=== PATIENT | female | born 2005 | race Two or more races ===

== ENCOUNTER 2024-03-31 08:18 | Emergency (ER) | payer SELFPAY ==
[2024-03-31 09:08] LABS: Specific Gravity 1.022 (1.005-1.030)
[2024-03-31 09:24] LABS: Urine Color Dark Yellow (Yellow)
[2024-03-31 09:25] LABS: Specific Gravity 1.022 (1.005-1.030); Urine Bilirubin NEGATIVE (Negative); Urine Blood 2+ (Negative); Urine Clarity Extremely Turbid (Clear); Urine Glucose Negative (Negative); Urine Ketones NEGATIVE (Negative)
[2024-03-31 09:26] LABS: Urine Nitrite NEGATIVE (Negative); Urine Protein 2+ (Negative); Urine RBC >50 /HPF (None Seen); Urine Urobilinogen Normal mg/dL (0.2-1.0); Urine WBC >50 /HPF (<5)
[2024-03-31 09:27] LABS: Urine Bacteria 20-50 /HPF (<20); Urine Culture Reflex Order REFLEXED
[2024-03-31 09:28] LABS: Urine Yeast (Budding) Few /HPF (None Seen)
[2024-03-31 09:29] LABS: Urine WBC Clump Occasional /HPF (None Seen)
[2024-03-31 09:35] LABS: Urine Micro Reflex YN NO BILL MICROSCOPIC
--- NOTE | 2024-03-31 10:26 | ER ---
Nurse's Notes [facility] Name: Yosvany Antonio Age: 18 yrs Sex: Female : 2005 Arrival Date: 03/31/2024 Time: 08:18 Bed 8 Private MD: Diagnosis: Urinary tract infection, incidental finding Presentation: 03/31 08:28 Chief complaint: Patient states: past three days she feels like her bladder is not iw emptying fully and she is having pain with urination , also having lower back pain. Coronavirus screen: At this time, the client does not indicate any symptoms associated with coronavirus-19. Ebola Screen: No symptoms or risks identified at this time. Initial Sepsis Screen: Does the patient meet any 2 criteria? No. Patient's initial sepsis screen is negative. Does the patient have a suspected source of infection? No. Patient's initial sepsis screen is negative. Risk Assessment: Do you want to hurt yourself or someone else? Patient reports no desire to harm self or others. Onset of symptoms was March 28, 2024. 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 - Infectious Disease History:: Denies. - Social history:: Smoking status: Reported history of juuling and/or vaping. Screenin:43 [facility] ED Fall Risk Assessment (Adult) History of falling in the last 3 months, aa5 including since admission No falls in past 3 months (0 pts) Confusion or Disorientation No (0 pts) Intoxicated or Sedated No (0 pts) Impaired Gait No (0 pts) Mobility Assist Device Used No (0 pt) Altered Elimination No (0 pt) Score/Fall Risk Level 0 - 2 = Low Risk Oriented to surroundings, Maintained a safe environment, Educated pt \T\ family on fall prevention, incl call for assistance when getting out of bed. Abuse screen: Denies threats or abuse. Nutritional screening: No deficits noted. Tuberculosis screening: No symptoms or risk factors identified. Assessment: 08:42 General: Appears comfortable, Behavior is calm, cooperative. Pain: Denies pain. Neuro: aa5 Level of Consciousness is awake, alert, obeys commands, Oriented to person, place, time, situation. Cardiovascular: Patient's skin is warm and dry. Respiratory: Airway is patent Respiratory effort is even, unlabored, Respiratory pattern is regular, symmetrical. GI: No signs and/or symptoms were reported involving the gastrointestinal system. : Reports pain with urination, urgency. EENT: No signs and/or symptoms were reported regarding the EENT system. Derm: Skin is pink, warm \T\ dry. Musculoskeletal: Range of motion: intact in all extremities. 10:40 Reassessment: Patient is alert, oriented x 3, equal unlabored respirations, skin aa5 warm/dry/pink. 11:15 Reassessment: Patient is alert, oriented x 3, equal unlabored respirations, skin aa5 warm/dry/pink. Vital Signs: 08:28 BP 125 / 82; Pulse 91; Resp 16; Temp 98.6; Pulse Ox 100% on R/A; Weight 65.77 kg; iw Height 5 ft. 1 in. ; Pain 4/10; 08:28 Body Mass Index 27.40 (65.77 kg, 154.94 cm) - Percentile 88.3 % iw 08:28 Pain Scale: Adult iw ED Course: 08:23 Patient arrived in ED. mr 08:29 Triage completed. iw 08:30 Helga Garcia MD is Attending Physician. sp3 08:30 Arm band placed on. iw 08:33 Sarah Randolph, RN is Primary Nurse. aa5 08:42 Patient has correct armband on for positive identification. Bed in low position. Call aa5 light in reach. Side rails up X 1. 08:44 UAM Sent. iw 08:44 Test, Urine Sent. iw 09:56 Inserted saline lock: 20 gauge in left antecubital area, using aseptic technique. Blood am7 collected. Flushed with 10 mL NS. 10:11 Warm blanket given. Verbal reassurance given. am7 11:15 No provider procedures requiring assistance completed. IV discontinued, intact, aa5 bleeding controlled, No redness/swelling at site. Pressure dressing applied. Administered Medications: 10:40 Drug: Rocephin - Rocephin (cefTRIAXone) IVPB 1 grams IVPB once over 30 mins; (mix in 50 aa5 mL NS) Route: IVPB; Infused Over: 30 mins; Site: left antecubital; 11:10 Follow up: Response: No adverse reaction; IV Status: Completed infusion aa5 Medication: 08:43 VIS not applicable for this client. aa5 Outcome: 10:26 Discharge ordered by . sp3 11:15 Discharged to home ambulatory, aa5 11:15 Condition: stable 11:15 Discharge instructions given to patient, Instructed on discharge instructions, follow up and referral plans. medication usage, Demonstrated understanding of instructions, follow-up care, medications, Prescriptions given X 1, 11:16 Patient left the ED. aa5 Signatures: Gill Fernandez, Juwan Echeverria mr Chani Patel, MONE RN iw Sarah Randolph RN RN aa5 Helga Gacria MD MD sp3 Sandy Malcolm am7 Corrections: (The following items were deleted from the chart) 08:29 08:28 BP 125 / 82; Pulse 100bpm; iw iw 08:30 08:28 BP 125 / 82; Pulse 91bpm; Resp 16bpm; Pulse Ox 100% RA; Temp 98.6F; iw iw
--- NOTE | 2024-03-31 10:26 | EDPHYS ---
Physician Documentation [facility] Name: Yosvany Antonio Age: 18 yrs Sex: Female : 2005 Arrival Date: 03/31/2024 Time: 08:18 Bed 8 Private MD: ED Physician Helga Garcia HPI: 03/31 08:46 This 18 yrs old Female presents to ER via Ambulatory with complaints of Urinary sp3 Problem, Back Pain. 08:46 18-year-old female with no past medical history presents with 2 days of dysuria and sp3 urinary frequency. She is taking [id number] Azo which has not significantly helped. She denies any history of kidney stone, pyelonephritis in her LMP was March 03 approximately 27 days ago. She does not think she is . On review of systems she denies headache, fever, URI symptoms, chest pain, shortness of breath, flank pain, abdominal pain, MANAGER ADOBE symptoms, rash, syncope, or or any other signs or symptoms on ROS at this time.. 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 - Infectious Disease History:: Denies. - Social history:: Smoking status: Reported history of juuling and/or vaping. ROS: 08:48 Constitutional: Negative for fever, chills, and weight loss, Eyes: Negative for injury, sp3 pain, redness, and discharge, Neck: Negative for injury, pain, and swelling, Cardiovascular: Negative for chest pain, palpitations, and edema, Respiratory: Negative for shortness of breath, cough, wheezing, and pleuritic chest pain, Abdomen/GI: Negative for abdominal pain, nausea, vomiting, diarrhea, and constipation, Back: Negative for injury and pain, MS/Extremity: Negative for injury and deformity, Skin: Negative for injury, rash, and discoloration, Neuro: Negative for headache, weakness, numbness, tingling, and seizure, Psych: Negative for depression, anxiety, suicide ideation, homicidal ideation, and hallucinations, Allergy/Immunology: Negative for hives, rash, and allergies, Endocrine: Negative for neck swelling, polydipsia, polyuria, polyphagia, and marked weight changes, 08:48 All other systems are negative, Exam: 08:49 Constitutional: This is a well developed, well nourished patient who is awake, alert, sp3 and in no acute distress. Head/Face: Normocephalic, atraumatic. Eyes: Pupils equal round and reactive to light, extra-ocular motions intact. Lids and lashes normal. Conjunctiva and sclera are non-icteric and not injected. Cornea within normal limits. Periorbital areas with no swelling, redness, or edema. Neck: Trachea midline, no thyromegaly or masses palpated, and no cervical lymphadenopathy. Supple, full range of motion without nuchal rigidity, or vertebral point tenderness. No Meningismus. Chest/axilla: Normal chest wall appearance and motion. Nontender with no deformity. No lesions are appreciated. Cardiovascular: Regular rate and rhythm with a normal S1 and S2. No gallops, murmurs, or rubs. Normal PMI, no JVD. No pulse deficits. Respiratory: Lungs have equal breath sounds bilaterally, clear to auscultation and percussion. No rales, rhonchi or wheezes noted. No increased work of breathing, no retractions or nasal flaring. Abdomen/GI: Soft, non-tender, with normal bowel sounds. No distension or tympany. No guarding or rebound. No evidence of tenderness throughout. Back: No spinal tenderness. No costovertebral tenderness. Full range of motion. Skin: Warm, dry with normal turgor. Normal color with no rashes, no lesions, and no evidence of cellulitis. MS/ Extremity: Pulses equal, no cyanosis. Neurovascular intact. Full, normal range of motion. Neuro: Awake and alert, GCS 15, oriented to person, place, time, and situation. Cranial nerves II-XII grossly intact. Motor strength 5/5 in all extremities. Sensory grossly intact. Cerebellar exam normal. Normal gait. Vital Signs: 08:28 BP 125 / 82; Pulse 91; Resp 16; Temp 98.6; Pulse Ox 100% on R/A; Weight 65.77 kg; iw Height 5 ft. 1 in. ; Pain 4/10; 08:28 Body Mass Index 27.40 (65.77 kg, 154.94 cm) - Percentile 88.3 % iw 08:28 Pain Scale: Adult iw MDM: 08:30 Medical Screening Exam initiated sp3 08:49 Data reviewed: vital signs, nurses notes, lab test result(s). ED course: 18-year-old sp3 female with dysuria and frequency. Differential diagnosis includes UTI versus early pyelonephritis. I am not highly suspicious of kidney stone spectrum. Clinically ruled out GI and MANAGER ADOBE pathology. hCG pending. Disposition pending workup and patient course with probable discharge home on antibiotics.. 10:24 ED course: Urine test was read as negative however lab called and said that sp3 there was a faint line after the 3-minute deana. Quant hCG demonstrates an hCG level of 22. We will proceed as if patient is very early . Rocephin 1 dose IV and patient will be discharged home on Macrobid. Repeat hCG in 48 hours is recommended.. 03/31 08:38 Order name: UAM; Complete Time: 10:07 sp3 03/31 08:38 Order name: Test, Urine; Complete Time: 09:26 sp3 03/31 09:32 Order name: Quantitative Hcg aa5 03/31 09:34 Order name: Urine Culture EDMS Administered Medications: 10:40 Drug: Rocephin - Rocephin (cefTRIAXone) IVPB 1 grams IVPB once over 30 mins; (mix in 50 aa5 mL NS) Route: IVPB; Infused Over: 30 mins; Site: left antecubital; 11:10 Follow up: Response: No adverse reaction; IV Status: Completed infusion aa5 Disposition Summary: 03/31/24 10:26 Discharge Ordered Notes: Location: Home sp3 Condition: Stable sp3 Diagnosis - Urinary tract infection, incidental finding sp3 Followup: sp3 - With: Private Physician - When: Upon discharge from the Emergency Department - Reason: Recheck today's complaints, Continuance of care Discharge Instructions: - Discharge Summary Sheet sp3 - and Urinary Tract Infection sp3 Forms: - Medication Reconciliation Form sp3 - Antibiotic Education sp3 - Prescription Opioid Use sp3 - Patient Portal Instructions sp3 - Leadership Thank You Letter sp3 Prescriptions: - Macrobid 100 mg Oral Capsule - take 1 capsule ORAL route every 12 hours for 7 days; 14 capsule; Refills: 0, sp3 Product Selection Permitted Signatures: Dispatcher [employer] EDMS Chani Patel, RN RN iw Sarah Randolph RN RN aa5 Helga Garcia MD MD sp3 Corrections: (The following items were deleted from the chart) 08:39 08:39 Urinalysis W/Microscopic+U.LAB.BRZ ordered. EDMS EDMS 08:39 08:39 Test, Urine+UC.LAB.BRZ ordered. EDMS EDMS 10:24 09:27 TEST, SERUM+SC.LAB.BRZ ordered. EDMS EDMS
[2024-03-31] MEDS ORDERED: NA CHLORIDE 0.9% 100 ML ONE (10:36)
[2024-03-31] MEDS ORDERED: CEFTRIAXONE 1000 MG/VIAL ONE (10:36)
[2024-04-03 15:15] VITALS: BP 125/82; TEMP 98.6; O2SAT 100
== END 2024-03-31 11:16 | disposition home or self-care (01) ==
LOC: ER 08:18
DX: N39.0 Urinary tract infection, site not specified (principal); Z33.1 Pregnant state, incidental; Z87.891 Personal history of nicotine dependence
CPT/HCPCS: 36415; 81001; 81025; 84702; 87077; 87086; 87088; 87186; 96365; 99284; J0696

== ENCOUNTER 2024-04-02 10:00 | Emergency (ER) | payer SELFPAY ==
--- NOTE | 2024-04-02 10:54 | EDPHYS ---
Physician Documentation [facility] Name: Yosvany Antonio Age: 18 yrs Sex: Female : 2005 Arrival Date: 04/02/2024 Time: 10:00 Bed 12 Private MD: ED Physician Fuad Paredes HPI: 04/02 10:27 This 18 yrs old Female presents to ER via Ambulatory with complaints of repeat hcg. sb4 10:27 Patient was seen here 2 days ago for UTI. Apparently, her UPT showed a faint positive sb4 so a hCG was run and resulted at 22. She was told to return in 48 hours for repeat beta-hCG. Patient has no complaints at this time. Historical: - Allergies: 10:17 No Known Allergies; iw - Home Meds: 10:17 None [Active]; iw - PMHx: 10:17 None; iw - PSHx: 10:17 None; iw - Social history:: Smoking status: . ROS: 10:28 Constitutional: Negative for fever, chills, and weight loss, sb4 10:28 All other systems are negative, Exam: 10:29 Constitutional: This is a well developed, well nourished patient who is awake, alert, sb4 and in no acute distress. Head/Face: Normocephalic, atraumatic. Eyes: Extra-ocular motions intact. Periorbital areas with no swelling, redness, or edema. ENT: Mucous membranes moist. Respiratory: No increased work of breathing, no retractions or nasal flaring. Vital Signs: 10:16 BP 109 / 72; Pulse 83; Resp 16; Temp 98.3; Pulse Ox 100% on R/A; iw MDM: 10:08 Medical Screening Exam initiated sb4 10:51 Data reviewed: vital signs, nurses notes, lab test result(s), and as a result, I will sb4 discharge patient. Counseling: I had a detailed discussion with the patient and/or guardian regarding the historical points, exam findings, and any diagnostic results supporting the discharge/admit diagnosis, lab results, the need for outpatient follow up, an OB/Gyne specialist, to return to the emergency department if symptoms worsen or persist or if there are any questions or concerns that arise at home. 04/02 10:19 Order name: HCG-Quantitative; Complete Time: 10:48 sb4 Administered Medications: No medications were administered Disposition: 13:56 Co-signature as Attending Physician, Fuad Paredes MD I reviewed the patient's care rn provided by the Advanced Practice Provider and agree with the diagnosis and treatment plan. Disposition Summary: 04/02/24 10:53 Discharge Ordered Notes: Location: Home sb4 Problem: new sb4 Symptoms: are unchanged sb4 Condition: Stable sb4 Diagnosis - Encounter for quantitative HCG testing sb4 Followup: sb4 - With: Private Physician - When: 10 - 14 days - Reason: Recheck today's complaints, Re-evaluation by your physician Discharge Instructions: - Discharge Summary Sheet sb4 - First Trimester of , Egiv-[id number] sb4 Forms: - Patient Portal Instructions sb4 - Leadership Thank You Letter sb4 Signatures: Dispatcher [employer] Chani Hammond, RN Fuad Yung MD MD rn Brown, Sophia, PA-C PACaren sb4 Corrections: (The following items were deleted from the chart) 10:28 10:27 Patient was seen here 2 days ago for UTI. Apparently, her UPT showed a faint sb4 positive so a hCG was run and resulted at 22. She was told to return in 48 hours for repeat beta-hCG. sb4
--- NOTE | 2024-04-02 10:54 | ER ---
Nurse's Notes [facility] Name: Yosvany Antonio Age: 18 yrs Sex: Female : 2005 Arrival Date: 04/02/2024 Time: 10:00 Bed 12 Private MD: Diagnosis: Encounter for quantitative HCG testing Presentation: 04/02 10:16 Chief complaint: Patient states: was told to come in for follow up HCG. Coronavirus iw screen: At this time, the client does not indicate any symptoms associated with coronavirus-19. Ebola Screen: No symptoms or risks identified at this time. Initial Sepsis Screen: Does the patient meet any 2 criteria? No. Patient's initial sepsis screen is negative. Does the patient have a suspected source of infection? No. Patient's initial sepsis screen is negative. Risk Assessment: Do you want to hurt yourself or someone else? Patient reports no desire to harm self or others. Onset of symptoms was April 02, 2024. 10:16 Method Of Arrival: Ambulatory iw 10:16 Acuity: CHIQUITA 4 iw Historical: - Allergies: 10:17 No Known Allergies; iw - Home Meds: 10:17 None [Active]; iw - PMHx: 10:17 None; iw - PSHx: 10:17 None; iw - Social history:: Smoking status: . Screenin:21 [facility] ED Fall Risk Assessment (Adult) History of falling in the last 3 months, iw including since admission No falls in past 3 months (0 pts) Confusion or Disorientation No (0 pts) Intoxicated or Sedated No (0 pts) Impaired Gait No (0 pts) Mobility Assist Device Used No (0 pt) Altered Elimination No (0 pt) Score/Fall Risk Level 0 - 2 = Low Risk Oriented to surroundings, Maintained a safe environment. Abuse screen: Denies threats or abuse. Nutritional screening: No deficits noted. Tuberculosis screening: No symptoms or risk factors identified. Assessment: 10:21 General: Appears in no apparent distress. Behavior is calm, cooperative. Pain: Denies iw pain. Neuro: Level of Consciousness is awake, alert, obeys commands, Oriented to person, place, time, situation, Peoplesoft Hrms Developer are equal bilaterally. Cardiovascular: Patient's skin is warm and dry. Respiratory: Respiratory effort is even, unlabored, Respiratory pattern is regular. Derm: Skin is intact, is healthy with good turgor. Musculoskeletal: Range of motion: intact in all extremities. Vital Signs: 10:16 BP 109 / 72; Pulse 83; Resp 16; Temp 98.3; Pulse Ox 100% on R/A; iw ED Course: 10:04 Patient arrived in ED. sj2 10:04 Abbie Conway [facility] sb4 10:04 Fuad Paredes MD is Attending Physician. sb4 10:17 Triage completed. iw 10:18 Arm band placed on. iw 11:20 Chani Patel, RN is Primary Nurse. iw Administered Medications: No medications were administered Medication: 10:21 VIS not applicable for this client. iw Outcome: 10:53 Discharge ordered by . sb4 11:20 Patient left the ED. iw Signatures: Chani Patel, RN RN Abbie Leavitt PA-C PA-C sb4 [place] sj2
[2024-04-03 16:44] VITALS: BP 109/72; TEMP 98.3; O2SAT 100
== END 2024-04-02 11:20 | disposition home or self-care (01) ==
LOC: ER 10:00
DX: Z32.01 Encounter for pregnancy test, result positive (principal)
CPT/HCPCS: 36415; 84702; 99281